=== PATIENT | male | born 1940 | race Caucasian/White ===

== ENCOUNTER 2020-08-29 04:57 | Emergency (ER) | payer MEDICARE, BC ==
[~2020-08-29] VITALS: Ht 188 cm; Wt 135.0 kg
[~2020-08-29 04:57] MED LIST: ARTIFI TEAR1 OD; CHILD ASA81 MG PO; CIPROFLOXACN500 MG PO; FISH OIL1000 MG PO; LACRI-LUBE OD; LIPITOR20 MG PO; NEXIUM PO; PREDNISONE5 MG OR; VALTREX1 GM OR; ZANTAC150 MG OR; allo PO
[2020-08-29 05:31] LABS: HEMATOCRIT 43.8 % (39.0-50.0); HEMOGLOBIN 14.2 g/dl (14.0-18.0); IMMATURE GRANULOCYTES 0.1 % (0.0-5.0); MEAN CELL VOLUME 94.8 fL CALC (80.0-100.0); MEAN CORPUSCULAR HGB 30.7 pG CALC (26.0-32.0); MEAN CORPUSCULAR HGB CONC 32.4 g/dL CAL (32.0-36.0); NEUT# 5.17 thou/uL (1.82-7.42); RED BLOOD COUNT 4.62 mill/uL (4.70-6.10)
[2020-08-29] MEDS ORDERED: FINASTERIDE5 MG PO (05:31)
[2020-08-29] MEDS ORDERED: ATORVASTATIN CA80 MG PO (05:32)
[2020-08-29] MEDS ORDERED: OMEPRAZOLE10 MG PO (05:32)
[2020-08-29] MEDS ORDERED: ALLOPURINOL100 MG PO (05:33)
[2020-08-29] MEDS ORDERED: LOSARTAN POTASS25 MG PO (05:33)
[2020-08-29] MEDS ORDERED: DITROPAN5 MG/TA1 PO (05:33)
[2020-08-29 05:46] LABS: ALBUMIN 3.8 g/dL (3.2-5.0); ALKALINE PHOSPHATASE 56 u/l (38-126); ANION GAP 10 (6-22 (CALC)); BUN 19 mg/dL (8-23); BUN/CREATININE RATIO 19 (12-20 (CALC)); CARBON DIOXIDE 28 mmol/l (22-30); CHLORIDE 101 mmol/l (95-108); GFR > 60 ML/MIN (>=60 (CALC)); GFR FOR AFR.AMER. > 60 ML/MIN (>=60 (CALC)); POTASSIUM 4.2 mmol/l (3.5-5.1); SGOT/AST 34 u/l (19-48); SODIUM 135 mmol/l (137-146); TOTAL PROTEIN 6.7 g/dL (6.3-8.2)
[2020-08-29 05:53] LABS: ACT PARTIAL THROMBO TIME 23.4 SECONDS (20.0-32.5); INTERNATIONAL NORMALIZED RATIO 1.3 RATIO (0.7-1.3); PROTHROMBIN TIME 12.7 SECONDS (9.0-12.5)
[2020-08-29 05:58] LABS: MYOGLOBIN 347 ng/mL (0 - 121)
[2020-08-29 05:59] LABS: D-DIMER 0.85 mg/L (0.19-0.60)
[2020-08-29 06:16] LABS: TSH, 3RD GENERATION 4.18 uIU/mL (0.47 - 4.68)
[2020-08-29 08:08] VITALS: BP 152/75
== END 2020-08-29 08:08 | disposition left against medical advice (07) ==
LOC: ED 04:57
PROVIDERS: Family Medicine
DX: R00.2 Palpitations (principal); R42 Dizziness and giddiness; R89.7 Abnormal histological findings in specimens from other organs, systems and tissues; N32.81 Overactive bladder; I25.2 Old myocardial infarction; Z95.5 Presence of coronary angioplasty implant and graft; Z91.19 Patient's noncompliance with other medical treatment and regimen; Z20.822 Contact with and (suspected) exposure to COVID-19
CPT/HCPCS: Q9967